=== PATIENT | male | born 1960 | race Caucasian/White ===

== ENCOUNTER 2022-07-01 01:53 | Emergency (ER) | payer OTHER ==
[~2022-07-01] VITALS: Ht 177.8 cm; Wt 99.8 kg
[2022-07-01 02:02] VITALS: BP 189/76
[2022-07-01] MEDS ORDERED: TRANEXAMIC ACID 1,000 MG/10 ML VIAL ONE (02:23)
[2022-07-01] MEDS ORDERED: LIDOCAINE 1%-EPI 1:100,000 20 ML VIAL ONE (02:24)
[2022-07-01] MEDS ORDERED: TRANEXAMIC ACID IV ONE (02:30)
[2022-07-01] MEDS ORDERED: LIDOCAINE 2%-EPI 1:100,000 30 ML VIAL TP ONE (02:30)
[2022-07-01] MEDS ORDERED: NS 0.9% IV ONE (02:30)
[2022-07-01] MEDS ORDERED: HYDROCODONE/APAP 10/325MG TABLET ONE (04:43)
[2022-07-01] MEDS ORDERED: HYDROCODONE/APAP 10/325MG TABLET PO ONE (05:00)
[2022-07-01] MEDS ORDERED: AMOX-430 PO (06:35)
[2022-07-01] MEDS ORDERED: ERYT3.5O9 OP (06:55)
== END 2022-07-01 06:47 | disposition home or self-care (01) ==
LOC: ER 02:06
DX: S01.112A Laceration without foreign body of left eyelid and periocular area, initial encounter (principal); S01.21XA Laceration without foreign body of nose, initial encounter; I10 Essential (primary) hypertension; E11.9 Type 2 diabetes mellitus without complications; Z79.899 Other long term (current) drug therapy; W22.8XXA Striking against or struck by other objects, initial encounter; Y93.G3 Activity, cooking and baking; Y92.89 Other specified places as the place of occurrence of the external cause; Y99.8 Other external cause status
CPT/HCPCS: 99284; 70486; 12014; 96372; J7030; J3490